=== PATIENT | female | born 1950 | race African-American/Black ===

== ENCOUNTER 2018-12-05 08:06 | Day surgery (SDC) | payer MEDICARE, MEDICAID, OTHER ==
[~2018-12-05] VITALS: Ht 160 cm; Wt 95.7 kg
[~2018-12-05 08:06] MED LIST: ASPI-864; BALANCED SALT IRRIG SOLN COMB1 500ML OP ONE; LISI10TA
[2018-12-05] MEDS ORDERED: TROPICAMIDE 1% OPHTH DROPS 15ML RIGHTEYE NR (08:50)
[2018-12-05] MEDS ORDERED: CYCLOPENTOLATE HCL 1% OPHTH DROPS 2ML RIGHTEYE NR (08:50)
[2018-12-05] MEDS ORDERED: LACTATED RINGERS 1,000 ML IV SCH (08:50)
[2018-12-05] MEDS ORDERED: PHENYLEPHRINE HCL 10% OPHTH DROPS 5ML RIGHTEYE NR (08:50)
[2018-12-05] MEDS ORDERED: DIPH25TA24 PO (09:51)
[2018-12-05] MEDS ORDERED: CHOL100036 PO (09:51)
[2018-12-05] MEDS ORDERED: TC1U15 TOP (09:51)
[2018-12-05] MEDS ORDERED: CARV3.1242 PO (09:51)
[2018-12-05] MEDS ORDERED: CALC-586 PO (09:51)
[2018-12-05] MEDS ORDERED: CLOT15CR2 TP (09:51)
[2018-12-05] MEDS ORDERED: MIDAZOLAM HCL 2 MG/2 ML VIAL ONE (10:30)
[2018-12-05] MEDS ORDERED: FENTANYL CITRATE/PF 50MCG/ML 2ML VIAL ONE (10:30)
[2018-12-05] MEDS ORDERED: DIPHENHYDRAMINE 50MG/ML VIAL ONE (10:30)
[2018-12-05] MEDS ORDERED: HYALURONATE SODIUM 14 MG/ML 0.85ML SYRINGE IO ONE (12:10)
[2018-12-05] MEDS ORDERED: LIDOCAINE HCL/PF 2% 20 MG/ML 10ML VIAL ONE (14:59)
[2018-12-05] MEDS ORDERED: BALANCED SALT IRRIG SOLN 15ML ONE (14:59)
[2018-12-05] MEDS ORDERED: PREDNISOLONE ACETATE 1% OPHTH DROPS 1ML ONE (14:59)
[2018-12-05] MEDS ORDERED: CIPROFLOXACIN 0.3% OPHTH SOLN 2.5ML ONE (14:59)
[2018-12-05] MEDS ORDERED: TETRACAINE 0.5% OPHTH DROPS 4ML ONE (14:59)
[2018-12-05] MEDS ORDERED: NEO/POLYMYX B SULF/DEXAMETH OPHTH OINT 3.5GM ONE (14:59)
[2018-12-08] MEDS ORDERED: BALANCED SALT IRRIG SOLN COMB1 500ML OP SCH (08:00)
== END 2018-12-05 12:15 | disposition home or self-care (01) ==
LOC: OR 08:06
PROVIDERS: ATTEND Ophthalmology
DX: H25.89 Other age-related cataract (principal); M81.0 Age-related osteoporosis without current pathological fracture; I49.9 Cardiac arrhythmia, unspecified; I10 Essential (primary) hypertension; E66.01 Morbid (severe) obesity due to excess calories; Z95.0 Presence of cardiac pacemaker; Z98.41 Cataract extraction status, right eye; Z90.5 Acquired absence of kidney
CPT/HCPCS: 66984; 93005; J1200; J2250; J3010; J3490; V2632

== ENCOUNTER 2018-12-08 06:45 | Day surgery (SDC) | payer MEDICARE, MEDICAID ==
[~2018-12-08] VITALS: Ht 157.5 cm; Wt 93.0 kg
[~2018-12-08 06:45] MED LIST changes: -BALANCED SALT IRRIG SOLN COMB1 500ML OP ONE; +CALC-586 PO; +CARV3.1242 PO; +CHOL100036 PO; +CLOT15CR2 TP; +DIPH25TA24 PO; +TC1U15 TOP
[2018-12-08 07:21] LABS: BASOPHILS % 0.7 % (0.0-2.0); EOSINOPHILS % 0.1 % (0.0-5.0); HEMATOCRIT. 42.4 % (36.0-48.0); HEMOGLOBIN. 14.2 g/dL (12.0-16.0); MEAN CORPUSCULAR HEMOGLOBIN 32.1 pg (28.0-32.0); MEAN CORPUSCULAR VOLUME 96.1 fL (81.0-99.0); MEAN PLATELET VOLUME 7.7 fl (7.4-10.4); MONOCYTES % 11.4 % (2.0-8.0); NEUTROPHILS % 56.8 % (40.0-76.0); PLATELET 159 x1000/uL (130-400); RED BLOOD CELL COUNT 4.41 mill/uL (4.2-5.4); RED CELL DISTRIBUTION WIDTH 13.3 % (11.6-14.6)
[2018-12-08 07:28] LABS: CHLORIDE 109 mEq/L (98-107)
[2018-12-08 07:30] VITALS: BP 138/97
[2018-12-08 07:30] LABS: INR 1.1; PARTIAL THROMBOPLASTIN TIME 26.5 sec (23.4-31.0); PROTHROMBIN TIME 11.1 sec (9.1-11.1)
[2018-12-08] MEDS ORDERED: HYALURONATE SODIUM 14 MG/ML 0.85ML SYRINGE IO ONE (08:17)
[2018-12-08] MEDS ORDERED: MIDAZOLAM HCL 2 MG/2 ML VIAL ONE (09:11)
[2018-12-08] MEDS ORDERED: FENTANYL CITRATE/PF 50MCG/ML 2ML VIAL ONE (09:11)
[2018-12-08] MEDS ORDERED: DIPHENHYDRAMINE 50MG/ML VIAL ONE (09:12)
[2018-12-08] MEDS ORDERED: CEFAZOLIN SODIUM 1000MG/VIAL ONE (09:32)
[2018-12-08] MEDS ORDERED: SODIUM CHLORIDE 0.9% 10ML VIAL ONE (09:32)
[2018-12-08] MEDS ORDERED: DEXAMETHASONE 4MG/ML 1ML VIAL ONE (09:40)
[2018-12-08] MEDS ORDERED: HYDROMORPHONE HCL/PF 2MG/ML CPJ IV PRN (10:00)
[2018-12-08] MEDS ORDERED: CIPROFLOXACIN 0.3% OPHTH SOLN 2.5ML ONE (17:00)
[2018-12-08] MEDS ORDERED: PREDNISOLONE ACETATE 1% OPHTH DROPS 1ML ONE (17:00)
[2018-12-08] MEDS ORDERED: LIDOCAINE HCL/PF 2% 20 MG/ML 10ML VIAL ONE (17:00)
[2018-12-08] MEDS ORDERED: TETRACAINE 0.5% OPHTH DROPS 4ML ONE (17:00)
[2018-12-08] MEDS ORDERED: BALANCED SALT IRRIG SOLN 15ML ONE (17:00)
[2018-12-08] MEDS ORDERED: ACETYLCHOLINE CHLORIDE INTRAOCULAR SOLUTION 1:100 ELECTROLYTE DILUENT IO ONE (17:00)
== END 2018-12-08 09:50 | disposition home or self-care (01) ==
LOC: ER 06:45 → OR 09:10 → CANRESERV 09:28 → OR 09:50 → ENRESERV 20:52 → CANRESERV 20:52 → CANBEDREQ 12-09 01:50
PROVIDERS: ATTEND Ophthalmology
DX: H59.029 Cataract (lens) fragments in eye following cataract surgery, unspecified eye (principal); H20.00 Unspecified acute and subacute iridocyclitis; H40.89 Other specified glaucoma; E66.01 Morbid (severe) obesity due to excess calories; I10 Essential (primary) hypertension
CPT/HCPCS: 36415; 66852; 80053; 85025; 85610; 85730; 99283; C1893; J0690; J1100; J1200; J2250; J3010; J3490